=== PATIENT | female | born 1980 | race American Indian/Alaskan Native ===

== ENCOUNTER 2016-05-02 23:34 | Emergency (ER) | payer SELFPAY ==
[~2016-05-02] VITALS: Ht 160 cm; Wt 72.7 kg
[2016-05-02 23:35] VITALS: BP 134/78
== END 2016-05-03 01:40 | disposition left against medical advice (07) ==
LOC: EMS 23:36
DX: F41.9 Anxiety disorder, unspecified (principal); Z53.21 Procedure and treatment not carried out due to patient leaving prior to being seen by health care provider

== ENCOUNTER 2016-09-04 16:26 | Inpatient (IN) | payer MEDICAID, OTHER ==
[~2016-09-04] VITALS: Ht 157.5 cm; Wt 84.0 kg
[2016-09-04] MEDS ORDERED: ACETAMINOPHEN 325 MG TABLET PO ONE (17:00)
[2016-09-04] MEDS ORDERED: IBUPROFEN 600 MG TABLET PO ONE (17:00)
[2016-09-04] MEDS ORDERED: ONDANSETRON HCL 4 MG/2 ML VIAL IVP ONE (17:00)
[2016-09-04] MEDS ORDERED: SODIUM CHLORIDE 0.9% 1,000 ML IV ONE ×3 (17:00→21:15)
[2016-09-04 18:09] LABS: HEMATOCRIT 38.1 % (36-46); HEMOGLOBIN 12.9 g/dL (12.0-16.0); MEAN CORPUSCULAR HEMOGLOBIN 30.5 pg (26.0-34.0); MEAN CORPUSCULAR HGB CONC 33.9 G/dL (31.0-37.0); MEAN CORPUSCULAR VOLUME 90 fL (80-100); PLATELET COUNT (AUTO) 225 K/uL (150-450); RED BLOOD CELL COUNT(AUTO) 4.23 MIL/uL (4.00-5.20)
[2016-09-04 18:19] LABS: ANION GAP 7 mmol/L (8-16); CALCIUM, TOTAL 8.1 mg/dL (8.8-10.5); CARBON DIOXIDE 24 mmol/L (22-29); CHLORIDE 95 mmol/L (98-107); CREATININE 0.77 mg/dL (0.60-1.30); GLOMERULAR FILTR. RATE CALC > 60 mL/min (>60); POTASSIUM 3.7 mmol/L (3.5-5.1); SODIUM SERUM 126 mmol/L (136-145); UREA NITROGEN, BLOOD 13 mg/dL (7-18)
[2016-09-04 18:29] LABS: ALANINE AMINOTRANSFERASE 808 U/L (12-78); ALBUMIN 3.4 g/dL (3.4-5.0); ASPARTATE AMINOTRANSFERASE 734 U/L (15-37); BAND NEUTROPHILS % (MANUAL) 18 % (1-5); BASOPHILS % (MANUAL) 1 % (0-2); BILIRUBIN,TOTAL 0.9 mg/dL (0.1-1.0); LYMPHOCYTES % (MANUAL) 19 % (22-44); TOTAL CELLS COUNTED 100; TOTAL PROTEIN, SERUM 7.1 g/dL (6.4-8.2)
[2016-09-04 18:44] LABS: PROCALCITONIN (PCT) 0.33 ng/mL (<0.50)
[2016-09-04 18:52] LABS: LACTIC ACID 2.7 mmol/L (0.4-2.0)
[2016-09-04 19:35] LABS: APPEARANCE,URINE CLOUDY (CLEAR); GLUCOSE, URINE (UA) NEGATIVE (NEGATIVE); KETONES,URINE NEGATIVE (NEGATIVE); LEUKOCYTE ESTERASE ,URINE TRACE (NEGATIVE); OCCULT BLOOD,URINE LARGE (NEGATIVE); PH,URINE 6.5 (5.0-8.0); PROTEIN,URINE NEGATIVE (NEGATIVE)
[2016-09-04 19:51] LABS: SQUAMOUS EPITHELIAL CELL,UR Few /LPF (None Seen); WBC,URINE 0-2 /HPF (0-5)
[2016-09-04] MEDS ORDERED: AMPICILLIN SODIUM/SULBACTAM NA 3 GM in SODIUM CHLORIDE 0.9% 100 ML IV ONE (20:00)
[2016-09-04] MEDS ORDERED: GENTAMICIN 120 MG/NACL ISO-OSM 100 ML IV ONE (20:00)
[2016-09-04 20:03] LABS: REFLEX LACTIC ACID? YES YES
[2016-09-04] MEDS ORDERED: ONDANSETRON HCL 4 MG/2 ML VIAL IVP PRN ×2 (21:00→21:15)
[2016-09-04] MEDS ORDERED: ACETAMINOPHEN 325 MG TABLET PO PRN (21:00)
[2016-09-04] MEDS ORDERED: ALBUTEROL SULFATE 2.5 MG/0.5 ML NEB SOLUTION NEB PRN (21:15)
[2016-09-04] MEDS ORDERED: HYDROmorphone 2 MG/ML SYRINGE IVP PRN (21:15)
[2016-09-04] MEDS ORDERED: MAGNESIUM HYDROXIDE SUSPENSION 30 ML UDCUP PO PRN (21:15)
[2016-09-04] MEDS ORDERED: OxyCODONE HCL/ACETAMINOPHEN 5-325 MG TABLET PO PRN (21:15)
[2016-09-04] MEDS ORDERED: *CLINICAL-GENTAMICIN DOSING CLINICAL ONE ×2 (21:15)
[2016-09-04 21:56] VITALS: BP 102/48
[2016-09-05] MEDS ORDERED: GENTAMICIN SULFATE 140 MG in DEXTROSE 5%-WATER 50 ML IV SCH ×2
[2016-09-05] MEDS ORDERED: VANCOMYCIN HCL 1.5 GM in DEXTROSE 5%-WATER 250 ML IV ONE (02:00)
[2016-09-05] MEDS ORDERED: AMPICILLIN SODIUM/SULBACTAM NA 3 GM in SODIUM CHLORIDE 0.9% 100 ML IV SCH (02:00)
[2016-09-05] MEDS: ACETAMINOPHEN 325 MG TABLET PO PRN ×2 (03:57→21:52)
[2016-09-05] MEDS ORDERED: PNEUMOCOCCAL VACCINE POLYVALENT 0.5 ML VIAL [PPSV23] IM ONE (04:45)
[2016-09-05] MEDS ORDERED: IBUPROFEN 400 MG TABLET PO PRN (05:15)
[2016-09-05 05:51] VITALS: BP 110/60
[2016-09-05 06:35] LABS: BASOPHILS % (AUTO) 0.4 % (0.0-2.0); EOSINOPHILS % (AUTO) 0.3 % (1.0-6.0); HEMATOCRIT 33.5 % (36-46); HEMOGLOBIN 11.1 g/dL (12.0-16.0); LYMPHOCYTES # (AUTO) 0.7 K/uL (1.0-4.8); MEAN CORPUSCULAR HEMOGLOBIN 29.9 pg (26.0-34.0); MEAN CORPUSCULAR HGB CONC 33.2 G/dL (31.0-37.0); MEAN CORPUSCULAR VOLUME 90 fL (80-100); MONOCYTES # (AUTO) 0.2 K/uL (0.1-1.0); MONOCYTES % (AUTO) 7.7 % (2.0-9.0); NEUTROPHILS # (AUTO) 1.6 K/uL (1.8-7.7); NEUTROPHILS % (AUTO) 63.6 % (40.0-70.0); PLATELET COUNT (AUTO) 207 K/uL (150-450); RED BLOOD CELL COUNT(AUTO) 3.73 MIL/uL (4.00-5.20); RED CELL DISTRIBUTION WIDTH 13.4 % (11.5-14.5); WHITE BLOOD COUNT (AUTO) 2.6 K/uL (4.5-11.0)
[2016-09-05 07:20] VITALS: BP 98/44
[2016-09-05 07:29] LABS: ANION GAP 8 mmol/L (8-16); CALCIUM, TOTAL 7.4 mg/dL (8.8-10.5); CARBON DIOXIDE 24 mmol/L (22-29); CHLORIDE 103 mmol/L (98-107); CREATININE 0.65 mg/dL (0.60-1.30); GLOMERULAR FILTR. RATE CALC > 60 mL/min (>60); POTASSIUM 3.8 mmol/L (3.5-5.1); SODIUM SERUM 135 mmol/L (136-145); UREA NITROGEN, BLOOD 8 mg/dL (7-18)
[2016-09-05 07:43] LABS: LACTATE DEHYDROGENASE 404 U/L (81-234)
[2016-09-05] MEDS: VANCOMYCIN HCL 1.25 GM in DEXTROSE 5%-WATER 250 ML IV SCH ×2 (07:57→15:58)
[2016-09-05] MEDS: HEPARIN SODIUM,PORCINE 5,000 UNITS/ML VIAL SQ SCH ×3 (07:58→15:58)
[2016-09-05] MEDS: DOCUSATE SODIUM 100 MG CAPSULE PO SCH ×2 (07:58→19:59)
[2016-09-05 08:29] LABS: ERYTHROCYTE SEDIMENTATION RATE 23 MM/HR (0-20)
[2016-09-05] MEDS ORDERED: PANTOPRAZOLE SODIUM 40 MG DR TABLET PO SCH (09:00)
[2016-09-05 15:23] VITALS: BP 99/41
[2016-09-05 15:52] LABS: MONOTEST NEGATIVE (NEGATIVE); RHEUMATOID FACTOR SCREEN NEG (NEG)
[2016-09-05] MEDS ORDERED: SODIUM CHLORIDE 0.9% 500 ML IV ONE (17:53)
[2016-09-05 19:53] VITALS: BP 114/57
[2016-09-05] MEDS ORDERED: DiphenhydrAMINE HCL 50 MG/ML VIAL IVP PRN (20:30)
[2016-09-05 21:46] VITALS: BP 116/66
[2016-09-05] MEDS ORDERED: HYDROmorphone HCL 2 MG TABLET PO PRN (22:15)
[2016-09-05 23:37] LABS: GLUCOSE,POINT OF CARE 112 MG/DL (70-110)
[2016-09-07 04:33] LABS: HEPATITIS Bs ANTIGEN SCREEN P Negative (Negative); HEPATITIS C AB SCREEN <0.1 s/co ratio (0.0-0.9)
[2016-09-07 20:07] LABS: ANA,IFA (TITER & PATTERN) Positive
== END 2016-09-05 23:10 | disposition left against medical advice (07) | DRG 720 ==
LOC: EMS 16:29 → 6N 20:30
PROVIDERS: ADMIT Internal Medicine; ATTEND Internal Medicine
DX: A41.9 Sepsis, unspecified organism (principal); G92 Toxic encephalopathy; F17.210 Nicotine dependence, cigarettes, uncomplicated; F15.10 Other stimulant abuse, uncomplicated; I38 Endocarditis, valve unspecified; F15.19 Other stimulant abuse with unspecified stimulant-induced disorder; F14.10 Cocaine abuse, uncomplicated; Z91.040 Latex allergy status; Z88.5 Allergy status to narcotic agent
CPT/HCPCS: 51701; 76700; 80074; 82962; 83605; 83615; 84145; 85651; 86038; 86140; 86308; 86430; 87040; 87086; 93005; 93306; 96361; 96365; 96375; 99285; J0295; J1200; J1580; J1644; J2405; J3370; J7030; J7040; J7050; J7060

== ENCOUNTER 2016-11-16 00:53 | Emergency (ER) | payer OTHER ==
[~2016-11-16] VITALS: Ht 160 cm; Wt 71.4 kg
[2016-11-16] MEDS ORDERED: VANC1PLA10 IV (01:05)
[2016-11-16] MEDS ORDERED: PROPARACAINE HCL 0.5% 15 ML OPHTHALMIC SOLUTION OU ONE (02:30)
[2016-11-16] MEDS ORDERED: TRIAMCINOLONE 0.1% 15 GM CREAM TP ONE (02:30)
[2016-11-16] MEDS ORDERED: IBUPROFEN 600 MG TABLET PO ONE (02:30)
[2016-11-16 02:49] VITALS: BP 120/80
== END 2016-11-16 02:49 | disposition home or self-care (01) ==
LOC: EMS 00:59
DX: T65.891A Toxic effect of other specified substances, accidental (unintentional), initial encounter (principal); H57.8 Other specified disorders of eye and adnexa; F15.90 Other stimulant use, unspecified, uncomplicated; F11.90 Opioid use, unspecified, uncomplicated; F12.90 Cannabis use, unspecified, uncomplicated; F19.90 Other psychoactive substance use, unspecified, uncomplicated; F17.210 Nicotine dependence, cigarettes, uncomplicated; Z91.040 Latex allergy status; Y92.89 Other specified places as the place of occurrence of the external cause
CPT/HCPCS: 99284; 99406